=== PATIENT | male | born 1955 | race Caucasian/White ===

== ENCOUNTER 2021-12-08 13:11 | Outpatient (CLI) | payer MEDICARE ==
[2021-12-08 19:58] LABS: BASOPHILS % (AUTO) 0.5 %; EOSINOPHILS # (AUTO) 0.1 10^3/uL (0.0-0.7); EOSINOPHILS % (AUTO) 0.8 %; HCT - HEMATOCRIT 50.9 % (42.0-52.0); HGB - HEMOGLOBIN 17.4 g/dL (14.0-18.0); LYMPHOCYTES % (AUTO) 15.3 %; MEAN CORPUSCULAR HEMOGLOBIN 31.9 pg (27.0-31.0); MEAN CORPUSCULAR HGB CONC 34.2 g/dL (32.0-36.0); MEAN CORPUSCULAR VOLUME 93.2 fL (80.0-94.0); MEAN PLATELET VOLUME 9.4 fL (7.4-11.4); MONOCYTES # (AUTO) 0.5 10^3/uL (0.0-1.0); MONOCYTES % (AUTO) 7.8 %; NEUTROPHILS % (AUTO) 75.4 %; PLT - PLATELET COUNT 155 10^3/uL (130-450); RED BLOOD COUNT 5.46 10^6/uL (4.70-6.10); RED CELL DISTRIBUTION WIDTH 13.4 % (12.0-15.0); WHITE BLOOD COUNT 6.6 x10^3/uL (4.8-10.8)
[2021-12-08 20:29] LABS: ALBUMIN 4.6 g/dL (3.2-5.5); ALBUMIN/GLOBULIN RATIO 1.9 (1.0-2.2); BILIRUBIN,TOTAL 0.8 mg/dL (0.2-1.0); CREATININE 0.9 mg/dL (0.6-1.2); CRP HIGH SENSITIVITY 0.9 mg/L; POTASSIUM 3.9 mmol/L (3.5-5.0)
== END 2021-12-08 13:12 | disposition home or self-care (01) ==
LOC: LAB.S 13:11
PROVIDERS: ATTEND Internal Medicine Infectious Disease
DX: A31.9 Mycobacterial infection, unspecified (principal)
CPT/HCPCS: 36415; 80053; 85025; 85651; 86141

== ENCOUNTER 2023-10-30 15:57 | Outpatient (CLI) | payer MEDICARE ==
--- NOTE | 2023-10-30 17:19 | XRAY Report ---
PROCEDURE: Lumbar Spine 4V INDICATIONS: Lower back pain TECHNIQUE: 3 views of the lumbar spine were acquired. COMPARISON: None. FINDINGS: Bones: Mild to moderate spondylosis. Vertebral body heights are well-maintained. There is nonacute ap pearing minimal wedging of T12. Posterior fusion construct at L4-L5, with interbody spacer is in plac e. No priors are available for comparison. Oblique views without definite pars defect, but it is obscured by bowel gas and the metallic hardware . Soft tissues: Moderate fecal loading. IMPRESSION: L4-L5 fusion construct with interbody spacer. Mild to moderate degenerative changes elsewhere. If th ere is high concern for further derangement, consider MRI evaluation. Reviewed by: Ralph Ariza MD on 10/30/2023 5:17 PM PST Approved by: Ralph Ariza MD on 10/30/2023 5:17 PM PST Station ID: [id number]
--- NOTE | 2023-10-30 17:20 | XRAY Report ---
PROCEDURE: Shoulder 2+V LT INDICATIONS: PAIN IN LEFT SHOULDER TECHNIQUE: 3 views of the shoulder were acquired. COMPARISON: None. FINDINGS: Bones: Moderate acromioclavicular and mild to moderate glenohumeral degenerative changes. No displac ed fracture or dislocation. Suspected enthesopathic changes at the greater tuberosity. Soft tissues: No suspicious calcifications. IMPRESSION: Moderate acromioclavicular and mild to moderate glenohumeral degenerative changes. If there is high c oncern for further derangement, consider MRI evaluation. Reviewed by: Ralph Ariza MD on 10/30/2023 5:19 PM PST Approved by: Ralph Ariza MD on 10/30/2023 5:19 PM PST Station ID: [id number]
== END 2023-10-30 15:58 | disposition home or self-care (01) ==
LOC: DI.S 15:57
PROVIDERS: ATTEND Nurse Practitioner Family
DX: M47.816 Spondylosis without myelopathy or radiculopathy, lumbar region (principal); M19.012 Primary osteoarthritis, left shoulder

== ENCOUNTER 2023-11-01 08:43 | Outpatient (CLI) | payer MEDICARE ==
[2023-11-01 14:38] LABS: BASOPHILS % (AUTO) 0.4 %; EOSINOPHILS # (AUTO) 0.1 10^3/uL (0.0-0.7); EOSINOPHILS % (AUTO) 1.1 %; HCT - HEMATOCRIT 50.2 % (42.0-52.0); HGB - HEMOGLOBIN 16.9 g/dL (14.0-18.0); LYMPHOCYTES # (AUTO) 0.8 10^3/uL (1.5-3.5); LYMPHOCYTES % (AUTO) 14.8 %; MEAN CORPUSCULAR HEMOGLOBIN 31.5 pg (27.0-31.0); MEAN CORPUSCULAR HGB CONC 33.7 g/dL (32.0-36.0); MEAN CORPUSCULAR VOLUME 93.5 fL (80.0-94.0); MEAN PLATELET VOLUME 9.5 fL (7.4-11.4); MONOCYTES # (AUTO) 0.5 10^3/uL (0.0-1.0); MONOCYTES % (AUTO) 9.3 %; NEUTROPHILS # (AUTO) 4.1 10^3/uL (1.5-6.6); NEUTROPHILS % (AUTO) 74.2 %; PLT - PLATELET COUNT 165 10^3/uL (130-450); RED BLOOD COUNT 5.37 10^6/uL (4.70-6.10); RED CELL DISTRIBUTION WIDTH 12.3 % (12.0-15.0); WHITE BLOOD COUNT 5.5 x10^3/uL (4.8-10.8)
[2023-11-01 16:24] LABS: ALBUMIN 4.4 g/dL (3.2-5.5); ALBUMIN/GLOBULIN RATIO 1.8 (1.0-2.2); ALKALINE PHOSPHATASE 47 IU/L (42-121); ALT ALANINE AMINOTRANSFERASE 24 IU/L (10-60); AST ASPARTATE AMINOTRANSFERASE 17 IU/L (10-42); BILIRUBIN,TOTAL 0.4 mg/dL (0.2-1.0); BUN - BLOOD UREA NITROGEN 14 mg/dL (6-20); CALCIUM 9.5 mg/dL (8.5-10.3); CARBON DIOXIDE - CO2 29 mmol/L (21-32); CHLORIDE 104 mmol/L (101-111); CHOL/HDL RATIO 4.6 (<5.0); CHOLESTEROL 160 mg/dL; CREATININE 0.8 mg/dL (0.6-1.3); GFR - MDRD 96 (>89); GLUCOSE 117 mg/dL (74-104); HDL CHOLESTEROL 35 mg/dL; LDL CHOLESTEROL,CALCULATED 103 mg/dL; LDL/HDL RATIO 2.9 (<3.6); POTASSIUM 3.9 mmol/L (3.5-4.5); SODIUM 138 mmol/L (135-145); TOTAL PROTEIN 6.8 g/dL (6.4-8.9); TRIGLYCERIDES 109 mg/dL (48-352); VLDL CHOLESTEROL 22 mg/dL
[2023-11-01 16:31] LABS: THYROID STIMULATING HORMONE 0.89 uIU/mL (0.34-5.60)
[2023-11-01 16:34] LABS: PSA TOTAL 2.564 ng/mL (0.000-2.000)
== END 2023-11-01 08:44 | disposition home or self-care (01) ==
LOC: LAB.S 08:43
PROVIDERS: ATTEND Nurse Practitioner Family
DX: I10 Essential (primary) hypertension (principal); R35.0 Frequency of micturition; Z13.220 Encounter for screening for lipoid disorders
CPT/HCPCS: 36415; 80053; 80061; 83721; 84153; 84154; 84443; 85025